=== PATIENT | female | born 1955 | race African-American/Black ===

== ENCOUNTER 2018-09-01 07:20 | Day surgery (SDC) | payer OTHER ==
[2018-09-01] MEDS ORDERED: PROPOFOL 20 ML (08:34)
[2018-09-01] MEDS ORDERED: FENTAnyl 50 MCG/ML VIAL (08:34)
[2018-09-01] MEDS ORDERED: ONDANSETRON 4 MG INJ IV (09:00)
[2018-09-01] MEDS ORDERED: FENTAnyl 50 MCG/ML VIAL IV (09:00)
== END 2018-09-01 11:54 | disposition home or self-care (01) ==
LOC: GIL 07:20
DX: Z12.11 Encounter for screening for malignant neoplasm of colon (principal); K64.8 Other hemorrhoids
CPT/HCPCS: 45378